=== PATIENT | male | born 1980 | race African-American/Black ===

== ENCOUNTER 2017-05-25 02:34 | Emergency (ER) | payer MEDICAID ==
[~2017-05-25] VITALS: Ht 190.5 cm; Wt 81.0 kg
[2017-05-25] MEDS ORDERED: MORPHINE SULFATE 4 MG/ML CPJ (NOT FOR IM USE) IV STA (06:48)
[2017-05-25] MEDS ORDERED: ONDANSETRON HCL 4MG/2ML VIAL IV STA (06:48)
[2017-05-25] MEDS ORDERED: SODIUM CHLORIDE 0.9% 1,000 ML IV ONE (06:48)
[2017-05-25 07:28] LABS: INR 1.2
[2017-05-25 07:30] LABS: CARBON DIOXIDE 28 mEq/L (21-32); CHLORIDE 105 mEq/L (98-107)
[2017-05-25] MEDS ORDERED: MORPHINE SULFATE 2 MG/ML CPJ (NOT FOR IM USE) IV SCH (07:38)
[2017-05-25 07:45] LABS: BASOPHILS % 0.5 % (0.0-2.0); EOSINOPHILS % 1.9 % (0.0-5.0); LYMPHOCYTES % 22.3 % (20.0-50.0); MEAN CORPUSCULAR HEMOGLOBIN 31.7 pg (28.0-32.0); MEAN PLATELET VOLUME 8.6 fl (7.4-10.4); MONOCYTES % 6.4 % (2.0-8.0); NEUTROPHILS % 68.9 % (40.0-76.0); PLATELET 135 x1000/uL (130-400); RED BLOOD CELL COUNT 4.74 mill/uL (4.7-6.1); RED CELL DISTRIBUTION WIDTH 14.8 % (11.6-14.6)
[2017-05-25] MEDS ORDERED: KCL 20MEQ/100ML PREMIX 100 ML IV ONE (08:00)
[2017-05-25] MEDS ORDERED: KETOROLAC 30MG/ML VIAL IV ONE (09:00)
[2017-05-25 09:36] VITALS: BP 109/57
[2017-05-25 12:05] LABS: CLARITY URINE CLEAR (CLEAR); COLOR URINE DARK YELLOW (YELLOW); GLUCOSE URINE NEGATIVE (NEGATIVE); KETONES URINE NEGATIVE (NEGATIVE); LEUKOCYTE ESTERASE URINE NEGATIVE (NEGATIVE); NITRITE URINE NEGATIVE (NEGATIVE); OCCULT BLOOD URINE NEGATIVE (NEGATIVE); PH URINE 5.5 (4.5-8.0); PROTEIN URINE 1+ (NEGATIVE); SPECIFIC GRAVITY URINE 1.037 (1.005-1.030)
== END 2017-05-25 11:32 | disposition home or self-care (01) ==
LOC: ER 02:34
DX: A08.4 Viral intestinal infection, unspecified (principal); J45.909 Unspecified asthma, uncomplicated; E11.9 Type 2 diabetes mellitus without complications; Z88.0 Allergy status to penicillin
CPT/HCPCS: 36415; 80053; 81001; 82962; 83690; 85025; 85610; 96361; 96374; 96375; 99285; J1885; J2270; J2405; J3480; J7030; J7040; Z7610